=== PATIENT | female | born 1995 | race Caucasian/White ===

== ENCOUNTER 2023-01-27 14:11 | Emergency (ER) | payer OTHER ==
[~2023-01-27] VITALS: Ht 152.4 cm; Wt 56.0 kg
[2023-01-27 14:35] VITALS: BP 108/63; PULSE 80; RESP 20; TEMP 98.4; O2SAT 100
[2023-01-27] MEDS ORDERED: IBUPROFEN 400MG TABLET PO ONE (15:45)
[2023-01-27] MEDS ORDERED: IBUP-2028 MT (16:45)
== END 2023-01-27 17:20 | disposition home or self-care (01) ==
LOC: ER 14:11
DX: M21.611 Bunion of right foot (principal)
CPT/HCPCS: 73630; 81025; 99283